=== PATIENT | male | born 1950 | race African-American/Black ===

== ENCOUNTER 2025-04-27 13:58 | Outpatient (CLI) | payer MEDICARE, SELFPAY ==
--- NOTE | ~2025-04-27 | XR_ITS ---
HISTORY: PAIN IN RT HIP PAIN IN LT WRIST COMPARISON: None TECHNIQUE: 2 views of the right hip along with an AP view of the pelvis FINDINGS: No acute fracture or dislocation is identified. Superior lateral sclerosis of the bilateral femoral acetabular joint spaces are present consistent wi th osteoarthritis, right greater than left. Joint space narrowing detected within the pubic symphysis with sclerosis. Age-appropriate mineralization. IMPRESSION: Osteoarthritic change within the right more than left hip. No acute fracture. Reviewed, dictated and finalized at location A. IMPRESSION: Osteoarthritic change within the right more than left hip. No acut e fracture.
--- NOTE | ~2025-04-27 | XR_ITS ---
HISTORY: PAIN IN RT HIP PAIN IN LT WRIST COMPARISON: None TECHNIQUE: 3 views of the left wrist were performed. FINDINGS: No acute fracture is identified. The carpal arcs are intact. Mild radiocarpal joint space narrowing with sclerosis of the distal radius is present. The remaining visualized joint spaces are otherwise preserved. Periarticular osteopenia is identified consistent with osteoarthritis. Significant degenerative disease is identified within the first carpometacarpal joint space. No significant soft tissue swelling is noted. No radiopaque foreign body is identified. IMPRESSION: Degenerative disease, without acute fracture Reviewed, dictated and finalized at location A.
== END 2025-04-27 13:59 | disposition home or self-care (01) ==
PROVIDERS: PCP Internal Medicine Infectious Disease; Visit Provider Internal Medicine Infectious Disease
DX: M19.032 Primary osteoarthritis, left wrist (principal); M16.11 Unilateral primary osteoarthritis, right hip
CPT/HCPCS: 73110; 73502